=== PATIENT | male | born 2000 | race Hispanic/Latino ===

== ENCOUNTER 2021-08-23 20:51 | Emergency (ER) | payer SELFPAY ==
[~2021-08-23] VITALS: Ht 160 cm; Wt 74.0 kg
[2021-08-24] MEDS ORDERED: AMOX/K CLAV875 M1 PO (01:11)
[2021-08-24 02:18] VITALS: BP 112/75
== END 2021-08-24 02:18 | disposition home or self-care (01) | DRG 605 ==
LOC: ED 20:51
PROC: 3E0234Z Introduction of Serum, Toxoid and Vaccine into Muscle, Percutaneous Approach (ICD-10-PCS; principal; 2021-08-24)
DX: S81.852A Open bite, left lower leg, initial encounter (principal); W54.0XXA Bitten by dog, initial encounter; Y92.007 Garden or yard of unspecified non-institutional (private) residence as the place of occurrence of the external cause; Z23 Encounter for immunization; S81.851D Open bite, right lower leg, subsequent encounter; W54.0XXD Bitten by dog, subsequent encounter

== ENCOUNTER 2021-08-24 13:26 | Emergency (ER) | payer SELFPAY ==
[~2021-08-24] VITALS: Ht 160 cm; Wt 65.0 kg
[~2021-08-24 13:26] MED LIST: AMOX/K CLAV875 M1 PO
[2021-08-24 17:01] VITALS: BP 120/70
== END 2021-08-24 17:14 | disposition home or self-care (01) | DRG 951 ==
LOC: ED 13:26
PROC: 3E0234Z Introduction of Serum, Toxoid and Vaccine into Muscle, Percutaneous Approach (ICD-10-PCS; principal; 2021-08-24)
DX: Z23 Encounter for immunization (principal); S81.851D Open bite, right lower leg, subsequent encounter; W54.0XXD Bitten by dog, subsequent encounter

== ENCOUNTER 2021-08-29 13:58 | Emergency (ER) | payer SELFPAY ==
[~2021-08-29] VITALS: Ht 160 cm; Wt 65.0 kg
[2021-08-29 19:02] VITALS: BP 121/72
== END 2021-08-29 19:05 | disposition home or self-care (01) | DRG 950 ==
LOC: ED 13:58
DX: S81.851D Open bite, right lower leg, subsequent encounter (principal); W54.0XXD Bitten by dog, subsequent encounter